=== PATIENT | female | born 1945 | race Hispanic/Latino ===

== ENCOUNTER → 2017-07-03 | Day surgery (SDC) | payer MEDICARE ==
[~2017-07-03] MED LIST: AMLODIPINE BESYL5 MG PO; BESIVANCE5 ML OU; DUREZOL5 ML OU; FENTANYL CITRATE/PF 100MCG/2 ML INJ ONE; ILEVRO OP; MIDAZOLAM HCL 2 MG/2 ML VIAL ONE; OMEPRAZOLE40 MG PO; OR PHACO EYE KIT ONE; PREOP PHACO EYE KIT ONE; Z.0.ALENDRONATE SOD7 PO; Z.0.ATENOLOL25 MG PO; Z.0.ENALAPRIL MALEA2 PO; Z.0.FENOFIBRATE160 M PO; Z.0.JANUVIA50 MG PO; Z.0.WARFARIN SODIUM5 PO
[2017-07-03 12:06] LABS: INR 1.39
[2017-07-03 12:07] LABS: PARTIAL THROMBOPLASTIN TIME 27.2 seconds (23.8-35.5)
== END | disposition home or self-care (01) ==
LOC: OR 09:49
PROVIDERS: ATTEND Ophthalmology
DX: H25.11 Age-related nuclear cataract, right eye (principal); I25.810 Atherosclerosis of coronary artery bypass graft(s) without angina pectoris; I10 Essential (primary) hypertension; E78.5 Hyperlipidemia, unspecified; K21.9 Gastro-esophageal reflux disease without esophagitis; E11.9 Type 2 diabetes mellitus without complications; Z79.01 Long term (current) use of anticoagulants; Z79.84 Long term (current) use of oral hypoglycemic drugs; Z95.1 Presence of aortocoronary bypass graft; Z95.0 Presence of cardiac pacemaker; Z85.3 Personal history of malignant neoplasm of breast
CPT/HCPCS: 36415; 66984; 82948; 85610; 85730; J2250

== ENCOUNTER 2020-08-18 12:31 | Emergency (ER) | payer MEDICARE, OTHER ==
[~2020-08-18] VITALS: Ht 152.4 cm; Wt 72.1 kg
[~2020-08-18 12:31] MED LIST changes: -FENTANYL CITRATE/PF 100MCG/2 ML INJ ONE; -MIDAZOLAM HCL 2 MG/2 ML VIAL ONE; -OR PHACO EYE KIT ONE; -PREOP PHACO EYE KIT ONE
[2020-08-18] MEDS ORDERED: ULTRAM50 MG PO (15:06)
[2020-08-18 15:19] VITALS: BP 134/62
== END 2020-08-18 15:15 | disposition home or self-care (01) ==
LOC: ER 12:50
DX: S00.83XA Contusion of other part of head, initial encounter (principal); M25.551 Pain in right hip; M25.561 Pain in right knee; W01.0XXA Fall on same level from slipping, tripping and stumbling without subsequent striking against object, initial encounter; Y93.01 Activity, walking, marching and hiking; Y92.512 Supermarket, store or market as the place of occurrence of the external cause; I10 Essential (primary) hypertension; E11.9 Type 2 diabetes mellitus without complications; Z95.810 Presence of automatic (implantable) cardiac defibrillator
CPT/HCPCS: 70450; 99284

== ENCOUNTER 2024-03-06 16:15 | Emergency (ER) | payer MEDICARE ==
[~2024-03-06] VITALS: Ht 152.4 cm; Wt 72.1 kg
[~2024-03-06 16:15] MED LIST changes: +ULTRAM50 MG PO
[2024-03-06 16:40] VITALS: PULSE 59; RESP 16; TEMP 97.1; O2SAT 97
[2024-03-06] MEDS ORDERED: AMIODARONE HCL200 MG PO (17:18)
[2024-03-06] MEDS ORDERED: PANTOPRAZOLE SO40 MG PO (17:18)
== END 2024-03-06 17:45 | disposition home or self-care (01) ==
LOC: ER 16:20
DX: S00.83XA Contusion of other part of head, initial encounter (principal); M54.50 Low back pain, unspecified; W01.0XXA Fall on same level from slipping, tripping and stumbling without subsequent striking against object, initial encounter; Y93.01 Activity, walking, marching and hiking; Y92.89 Other specified places as the place of occurrence of the external cause; I10 Essential (primary) hypertension; E11.9 Type 2 diabetes mellitus without complications; Z95.810 Presence of automatic (implantable) cardiac defibrillator
CPT/HCPCS: 70450; 72125; 72131; 72192; 99283